=== PATIENT | male | born 1975 | race Caucasian/White ===

== ENCOUNTER 2016-08-12 22:52 | Emergency (ER) | payer OTHER, SELFPAY ==
[2016-08-12 23:28] LABS: AMPHETAMINES LEVEL URINE NEGATIVE (NEGATIVE); BENZODIAZEPINES URINE NEGATIVE (NEGATIVE); COCAINE METABOLITE URINE NEGATIVE (NEGATIVE); METHADONE URINE NEGATIVE (NEGATIVE); OPIATES URINE NEGATIVE (NEGATIVE); TRICYCLIC ANTIDEPRESS URINE NEGATIVE (NEGATIVE)
[2016-08-12 23:29] LABS: CONTROL LINE INT CTR LINE PRESENT
[2016-08-12 23:30] LABS: MEAN CORPUSCULAR HEMOGLOBIN 31.1 pg (27.0-33.0); MEAN CORPUSCULAR HGB CONC 33.8 g/dl (32.0-36.5); MEAN CORPUSCULAR VOLUME 92.2 fl (80.0-96.0); RED CELL DISTRIBUTION WIDTH 12.6 % (11.5-14.5); WHITE BLOOD COUNT 14.5 K/mm3 (4.0-10.0)
[2016-08-12 23:56] LABS: ALBUMIN 3.9 GM/DL (3.2-5.2); ALBUMIN/GLOBULIN RATIO 1.11 (1.00-1.93); ALKALINE PHOSPHATASE 108 U/L (45-117); ALT/SGPT 43 U/L (12-78); ANION GAP 11 MEQ/L (8-16); AST/SGOT 31 U/L (15-37); BILIRUBIN,DIRECT 0.1 MG/DL (0.0-0.2); BILIRUBIN,TOTAL 0.4 MG/DL (0.2-1.0); BLOOD UREA NITROGEN 12 MG/DL (7-18); CALCIUM LEVEL 8.2 MG/DL (8.5-10.1); CARBON DIOXIDE LEVEL 25 MEQ/L (21-32); CHLORIDE LEVEL 107 MEQ/L (98-107); GLOMERULAR FILTRATION RATE > 60.0 (>60); GLUCOSE, FASTING 83 MG/DL (70-105); POTASSIUM SERUM 3.5 MEQ/L (3.5-5.1); SODIUM LEVEL 143 MEQ/L (136-145); TOTAL PROTEIN 7.4 GM/DL (6.4-8.2)
[2016-08-13] MEDS ORDERED: ACETAMINOPHEN 325 MG TAB As Ordered ONE (02:54)
--- NOTE | 2016-08-13 05:02 | EDDOCDS ---
Nurse's Notes [facility] Name: Kishan Diehl Age: 41 yrs Sex: Male : 1975 Arrival Date: 08/12/2016 Time: 22:52 Bed OBSERVATION Private MD: Diagnosis: Alcohol abuse with intoxication;Acute stress reaction Presentation: 08/12 23:01 Presenting complaint: ETOH/SI. Mental Health Triage Level: Level 2: The patient ttb displays active suicidal ideations. Adult Sepsis Screening: The patient does not have new or worsening altered mentation. Patient's respiratory rate is less than 22. Systolic blood pressure is greater than 100. Patient has a qSOFA score of 0- Negative Sepsis Screen. Suicide/Homicide risk assessment- The patient admits to and/or has been reported to be having suicidal ideations. The patient reports that he/she has a recent or current history of substance abuse. Status: Patient is not a medical service technician or dependent. Transition of care: patient was not received from another setting of care. 23:01 Acuity: MARCELINO Level 3 ttb 23:01 Method Of Arrival: Police Car ttb Triage Assessment: 23:03 General: Appears in no apparent distress, well nourished, Behavior is appropriate for ttb age, cooperative, pleasant. Pain: Denies pain. HIV screening NA for this visit Offered previously. Neurological: Level of Consciousness is awake, alert, Oriented to person, place, time. Cardiovascular: Chest pain is denied. Respiratory: Airway is patent Respiratory effort is even, unlabored, Denies shortness of breath. Derm: Skin is normal. Historical: - Allergies: Compazine; - Home Meds: 1. Omeprazole Unknown Oral Unknown once daily (Last dose: 08/12/2016 07:00) - PMHx: GERD; - PSHx: Hernia repair; - Social history: Smoking status: Patient uses tobacco products, heavy tobacco smoker. Patient uses alcohol occasionally. street drugs, marijuana, No barriers to communication noted, The patient speaks fluent Latvian, Speaks appropriately for age. - Family history: Not pertinent. - : The pt / caregiver states he / she is not on anticoagulants. Home medication list is obtained from the patient. - Exposure Risk Screening:: None identified. Screenin:11 Screening information is obtained from the patient. Assistance ADL's: requires no slm assistance with activities of daily living. Abuse/DV Screen: The patient / caregiver reports he/she is: not in a situation that causes fear, pain or injury. Nutritional screening: No deficits noted. Advance Directives: Currently, there is no health care proxy. There is no active DNR order. There is no living will. There is no Power of Plant Wrapper. Advance directive information has not previously been placed in an [facility] medical record. Further advance directive information is declined. 08/13 04:52 Fall risk: No risks identified. home support is adequate. slm Assessment: 08/12 23:04 General: Appears in no apparent distress, comfortable, Behavior is appropriate for age, slm cooperative, pleasant. General: pt resting on stretcher admits to + ETOH use tonight security observing safety maintained . Pain: Denies pain. Neurological: Level of Consciousness is awake, alert, obeys commands. Respiratory: Airway is patent Respiratory effort is even, unlabored. Derm: Skin is pink, warm & dry. 23:59 General: Appears in no apparent distress, comfortable, to be sleeping. Behavior is slm quiet. General: security observing . Respiratory: Airway is patent Respiratory effort is even, unlabored, Respiratory pattern is regular. 08/13 00:37 General: Appears in no apparent distress, comfortable, to be sleeping. Behavior is slm quiet. General: security observing. Respiratory: No deficits noted. 01:37 General: Appears in no apparent distress, comfortable, to be sleeping. Behavior is slm quiet. General: resting on stretcher security observing . Respiratory: Airway is patent Respiratory effort is even, unlabored. 02:18 General: Appears in no apparent distress, comfortable, to be sleeping. Behavior is slm cooperative, quiet. General: security observing . Respiratory: Airway is patent Respiratory effort is even, unlabored. Derm: Skin is pink, warm & dry. 02:59 General: Appears in no apparent distress, comfortable, Behavior is appropriate for age, slm cooperative. General: pt resting on stretcher c/o headache meds given at this time will cont to monitor security observing . Pain:. Neurological: Level of Consciousness is awake, alert, obeys commands. Respiratory: Airway is patent Respiratory effort is even, unlabored. 03:31 General: Pt resting at rounds, no apparent distress, security observing, will continue sls1 to assess.. 03:54 General: Appears in no apparent distress, comfortable, Behavior is cooperative. slm General: pt resting on stretcher security observing . Respiratory: Airway is patent Respiratory effort is even, unlabored. 05:00 General: Appears in no apparent distress, comfortable, Behavior is appropriate for age, slm cooperative. General: pt d/c home via cab seen by and PSA no concerns . Pain: Denies pain. Neurological: Level of Consciousness is awake, alert, obeys commands, Oriented to person, place, time, Gait is steady, Speech is normal. Respiratory: No deficits noted. Derm: Skin is. Mental Health Eval: 08/12 23:04 Referral Information: Evaluation referral is generated by a police agency: [employer] on cl 9.41.. The patient was referred for evaluation because Pt reportedly spoke to ex amilcar and expressed SI, made statement that he had "hit rock bottom" per Police, has been drinking as well tonight, pt has long hx of ETOH dependence. Pt calm/cooperative on arrival.. 08/13 04:49 Status: The patient is not a medical service technician or dependent. [facility] Behavioral Health: The patient is not an established patient of [facility] Behavioral Health. Subjective: The patients chief complaint is Pt is awake, A&Ox3, clinically sober, calm/cooperative, states "I drank too much and said some stupid shit on Facebook, I'm embarrassed"..Pt admits to ETOH issues, has long hx, adamantly denies SI/HI, states "I have kids, I would never do that". Pt denies prior attempts at self harm, states he was getting ready to lay down fo the night when the Police arrived, states he has been doing well with new job and spending time with new female acquaintance, "just had a bad day yesterday and drank too much". Pt can easily CFS, denies SI/HI/AH/VH/drug use admits to frequent ETOH but declines any referral info. . Delusions are denied. Patient's mood is dysphoric, Hallucinations are denied. Subjective: Pt admits to feeling upset over recent separation from spouse after 10 years of marriage but states "I'm doing OK with it, just had a bad day yesterday..I have kids and would never do something that stupid". Mental Health history: alcohol abuse, depression, Mental Health Admissions: [facility] Current Outpatient Mental Health Services: None. Current living environment is The patient currently lives with a roommate, . The patient is . Patient presents to Emergency Department with the following symptoms within the past 2 weeks: alcohol abuse, marital problem. Substance abuse: Pt denies. Mental status exam: Patients appearance is disheveled Patient's behavior is cooperative, Speech is normal. Affect is appropriate. Mood is dysphoric. Hallucinations are denied. Appetite is normal. Memory is good. Energy level is normal. Content of thought is normal. Thought process is intact. Cognitive level is oriented to person, place, time and situation Patient's insight is fair. Judgement is fair. Rapport with interviewer is good. Suicidal Ideation is denied. Homicidal ideation is denied. Disposition: Medically cleared for disposition by Joey Guillen DO Psychiatric Consult is deferred per ED physician, Dr Guillen. [facility] Admission Criteria: Not Applicable. [place] because the patient does not display any suicidal or homicidal ideations and does not pose a risk to self or others. DSM-V Differential Diagnosis: Alcohol Intoxication moderate. Insurance Pre-Certification: Not Required. Family Notification: Notification to family of patient status is not currently needed or appropriate. Vital Signs: 08/12 22:54 BP 144 / 95; Pulse 110; Resp 18; Temp 96.5(T); Pulse Ox 98% on R/A; Pain 0/10; slm 08/13 02:51 Pain 2/10; kb5 04:50 BP 114 / 63; Pulse 98; Resp 18; Temp 98.4(T); Pulse Ox 97% on R/A; [facility] Vitals: 08/12 22:54 Log In time N/A- police car arrival. [facility] ED Course: 22:53 Patient visited by Mika Renee. zo 22:53 Patient moved to [facility] zo 22:54 Analia Hampton LPN is Primary Nurse. [facility] 22:54 Patient moved to [address] 23:00 Psych Safety Check: Location: Psych Room. Visual Assessment: Cooperative. kb5 23:02 Triage Initiated ttb 23:09 [facility] Legal paperwork was scanned into [employer] and attached to record. cl 23:10 Joey Guillen DO is Attending Physician. cs11 23:10 Patient visited by Joey Guillen DO. cs11 23:11 No IV's were initiated during this patient's visit. No procedures done that require slm assistance. Labs drawn. (by ED staff). Sent per order to lab. Urine collected. Urine specimen sent to lab. 23:12 Acetaminophen Level Sent. slm 23:12 Basic Metabolic Profile Sent. slm 23:12 Complete Blood Count Sent. slm 23:12 Drug Eval Toxicology ED Only Sent. slm 23:12 Ethyl Alcohol (ethanol) Sent. slm 23:12 Liver Profile Sent. slm 23:12 Salicylate Level Sent. slm 23:12 Thyroid Stimulating Hormone Sent. slm 23:15 Patient visited by Jordy Lew PCA. kb5 23:15 Pt greeted and oriented to ED. Patient advised of names of staff involved in care, kb5 location of call zaragoza, wait times and NPO status. Patient has correct armband on for positive identification. Placed in psych safe attire. Bed in low position. Call light in reach. Side rails up X 1. Security observing. Property removed, inventory done, secured in belongings bag- Placed in Locker 3. Door closed. Noise minimized. Visitors limited. Lights dimmed. Warm blanket given. Psych Safety Check: Location: Psych Room. Visual Assessment: Cooperative. 23:30 Psych Safety Check: Location: Psych Room. Visual Assessment: Cooperative. kb5 23:33 Patient visited by Jordy Lew PCA. kb5 23:45 Psych Safety Check: Location: Psych Room. Visual Assessment: Cooperative. kb5 23:46 Patient visited by Jordy Lew PCA. kb5 [id number] 00:00 Psych Safety Check: Location: Psych Room. Visual Assessment: Cooperative. kb5 00:07 Patient visited by Jordy Lew PCA. kb5 00:15 Patient visited by Jordy Lew PCA. kb5 00:15 Psych Safety Check: Location: Psych Room. Visual Assessment: Cooperative. kb5 00:30 Patient visited by Jordy Lew PCA. kb5 00:30 Psych Safety Check: Location: Psych Room. Visual Assessment: Cooperative. kb5 00:37 Patient visited by Analia Hampton LPN. slm 00:45 Psych Safety Check: Location: Psych Room. Visual Assessment: Cooperative. kb5 00:46 Patient visited by Jordy Lew PCA. kb5 01:00 Patient visited by Jordy Lew PCA. kb5 01:00 Psych Safety Check: Location: Psych Room. Visual Assessment: Cooperative. kb5 01:15 Patient visited by Jordy Lew PCA. kb5 01:15 Psych Safety Check: Location: Psych Room. Visual Assessment: Cooperative. kb5 01:20 Patient moved to OBSERVATION cs11 01:30 Psych Safety Check: Location: Psych Room. Visual Assessment: Cooperative. kb5 01:45 Psych Safety Check: Location: Psych Room. Visual Assessment: Cooperative. kb5 01:48 Patient visited by Jordy Lew PCA. kb5 02:00 Psych Safety Check: Location: Psych Room. Visual Assessment: Cooperative. kb5 02:15 Psych Safety Check: Location: Psych Room. Visual Assessment: Cooperative. kb5 02:19 Patient visited by Analia Hampton LPN. slm 02:30 Psych Safety Check: Location: Psych Room. Visual Assessment: Cooperative. kb5 02:45 Psych Safety Check: Location: Psych Room. Visual Assessment: Cooperative. kb5 03:00 Patient visited by Jordy Lew PCA. kb5 03:00 Patient visited by Analia Hampton LPN. slm 03:00 Psych Safety Check: Location: Psych Room. Visual Assessment: Cooperative. kb5 03:15 Psych Safety Check: Location: Psych Room. Visual Assessment: Cooperative. kb5 03:30 [facility] was [place] into [employer] and attached to record. sl 03:30 Psych Safety Check: Location: Psych Room. Visual Assessment: Cooperative. kb5 03:33 Patient visited by Pepper Avalos RN. sls1 03:45 Patient visited by Jordy Lew PCA. kb5 03:45 Psych Safety Check: Location: Psych Room. Visual Assessment: Cooperative. kb5 04:00 Psych Safety Check: Location: Psych Room. Visual Assessment: Cooperative. kb5 04:11 Patient visited by Jordy Lew PCA. kb5 04:15 Psych Safety Check: Location: Psych Room. Visual Assessment: Cooperative. kb5 04:17 Patient visited by Jordy Lew PCA. kb5 04:30 Patient visited by Jordy Lew PCA. kb5 04:30 Psych Safety Check: Location: Psych Room. Visual Assessment: Cooperative. kb5 04:45 Patient visited by Jordy Lew PCA. kb5 04:45 Psych Safety Check: Location: Psych Room. Visual Assessment: Cooperative. kb5 04:50 Referral list, As provided by [facility] is Referral Physician. cs11 04:52 Patient visited by Analia Hampton LPN. sl 04:52 The patient / caregiver is instructed regarding the plan of care and ED course. [facility] 05:01 Patient visited by Analia Hampton LPN. [facility] Administered Medications: 02:59 Drug: Acetaminophen 650 mg [acetaminophen 325 mg tablet (2 tabs)] Route: PO; [facility] 03:54 Follow up: Response: Pain is decreased [facility] Attachments: 08/12 23:09 M[facility] Legal paperwork cl Order Results: Lab Order: Acetaminophen Level; SPEC'M 08/12/16 22:59 Test: ACETAMINOPHEN LEVEL; Value: < 2.0; Range: 10.0-30.0; Abnormal: Below low normal; Units: UG/ML; Status: F Lab Order: Basic Metabolic Profile; SPEC'M 08/12/16 22:59 Test: GLUCOSE, FASTING; Value: 83; Range: 70-105; Units: MG/DL; Status: F Test: BLOOD UREA NITROGEN; Value: 12; Range: 7-18; Units: MG/DL; Status: F Test: CREATININE FOR GFR; Value: 1.00; Range: 0.70-1.30; Units: MG/DL; Status: F Test: GLOMERULAR FILTRATION RATE; Value: > 60.0; Range: >60; Status: F Test: SODIUM LEVEL; Value: 143; Range: 136-145; Units: MEQ/L; Status: F Test: POTASSIUM SERUM; Value: 3.5; Range: 3.5-5.1; Units: MEQ/L; Status: F Test: CHLORIDE LEVEL; Value: 107; Range: 98-107; Units: MEQ/L; Status: F Test: CARBON DIOXIDE LEVEL; Value: 25; Range: 21-32; Units: MEQ/L; Status: F Test: ANION GAP; Value: 11; Range: 8-16; Units: MEQ/L; Status: F Test: CALCIUM LEVEL; Value: 8.2; Range: 8.5-10.1; Abnormal: Below low normal; Units: MG/DL; Status: F Test Note: ; Units are mL/min/1.73 m2 Chronic Kidney Disease Staging per NKF: Stage I & II GFR >=60 Normal to Mildly Decreased Stage III GFR 30-59 Moderately Decreased Stage IV GFR 15-29 Severely Decreased Stage V GFR <15 Very Little GFR Left ESRD GFR <15 on CORD SPLICER Lab Order: Complete Blood Count; SPEC'M 08/12/16 22:59 Test: WHITE BLOOD COUNT; Value: 14.5; Range: 4.0-10.0; Abnormal: Above high normal; Units: K/mm3; Status: F Test: RED BLOOD COUNT; Value: 4.80; Range: 4.30-6.10; Units: M/mm3; Status: F Test: HEMOGLOBIN; Value: 14.9; Range: 14.0-18.0; Units: g/dl; Status: F Test: HEMATOCRIT; Value: 44.2; Range: 42.0-52.0; Units: %; Status: F Test: MEAN CORPUSCULAR VOLUME; Value: 92.2; Range: 80.0-96.0; Units: fl; Status: F Test: MEAN CORPUSCULAR HEMOGLOBIN; Value: 31.1; Range: 27.0-33.0; Units: pg; Status: F Test: MEAN CORPUSCULAR HGB CONC; Value: 33.8; Range: 32.0-36.5; Units: g/dl; Status: F Test: RED CELL DISTRIBUTION WIDTH; Value: 12.6; Range: 11.5-14.5; Units: %; Status: F Test: PLATELET COUNT, AUTOMATED; Value: 356; Range: 150-450; Units: k/mm3; Status: F Lab Order: Drug Eval Toxicology ED Only; SPEC'M 08/12/16 22:59 Test: AMPHETAMINES LEVEL URINE; Value: NEGATIVE; Range: NEGATIVE; Status: F Test: BARBITURATES URINE; Value: NEGATIVE; Range: NEGATIVE; Status: F Test: BENZODIAZEPINES URINE; Value: NEGATIVE; Range: NEGATIVE; Status: F Test: CANNABINOIDS URINE; Value: POSITIVE; Range: NEGATIVE; Abnormal: Above high normal; Status: F Test: COCAINE METABOLITE URINE; Value: NEGATIVE; Range: NEGATIVE; Status: F Test: METHADONE URINE; Value: NEGATIVE; Range: NEGATIVE; Status: F Test: OPIATES URINE; Value: NEGATIVE; Range: NEGATIVE; Status: F Test: TRICYCLIC ANTIDEPRESS URINE; Value: NEGATIVE; Range: NEGATIVE; Status: F Test Note: ; FALSE POSITIVE RESULTS CAN BE CAUSED BY THE USE OF PANTOPRAZOLE (PROTONIX). Lab Order: Ethyl Alcohol (ethanol); SPEC'M 08/12/16 22:59 Test: ETHYL ALCOHOL (ETHANOL); Value: 0.220; Range: 0.000-0.010; Abnormal: Above high normal; Units: %; Status: F Lab Order: Liver Profile; SPEC'M 08/12/16 22:59 Test: AST/SGOT; Value: 31; Range: 15-37; Units: U/L; Status: F Test: ALT/SGPT; Value: 43; Range: 12-78; Units: U/L; Status: F Test: ALKALINE PHOSPHATASE; Value: 108; Range: 45-117; Units: U/L; Status: F Test: BILIRUBIN,TOTAL; Value: 0.4; Range: 0.2-1.0; Units: MG/DL; Status: F Test: BILIRUBIN,DIRECT; Value: 0.1; Range: 0.0-0.2; Units: MG/DL; Status: F Test: TOTAL PROTEIN; Value: 7.4; Range: 6.4-8.2; Units: GM/DL; Status: F Test: ALBUMIN; Value: 3.9; Range: 3.2-5.2; Units: GM/DL; Status: F Test: ALBUMIN/GLOBULIN RATIO; Value: 1.11; Range: 1.00-1.93; Status: F Lab Order: Salicylate Level; SPEC'M 08/12/16 22:59 Test: SALICYLATE LEVEL; Value: 2.6; Range: 5.0-30.0; Abnormal: Below low normal; Units: MG/DL; Status: F Lab Order: Thyroid Stimulating Hormone; SPEC'M 08/12/16 22:59 Test: THYROID STIMULATING HORMONE; Value: 1.210; Range: 0.358-3.740; Units: uIU/ML; Status: F Outcome: 04:50 Discharge ordered by Provider. cs11 04:51 Discharge Assessment: patient administered narcotics - no. No special radiology studies slm were completed. 05:01 The following High Risk Discharge criteria are identified: Yes, no concerns per md and slm psa . Discharged to home ambulatory. Condition: stable. Discharge instructions given to patient, Instructed on discharge instructions, follow up and referral plans. Demonstrated understanding of instructions, Pt was receptive of discharge instructions/ teaching. 05:02 Patient left the ED. slm Signatures: Wilman Chappell, PSA PSA cl Mika Renee Kristopher, SHOP LABORER SHOP LABORER kb5 Pepper Avalos, RN RN sls1 Joey Guillen, DO cs11 Allie Grier RN RN Analia Mota LPN LPN [facility] Michelle Dupree [facility] DONIS
--- NOTE | 2016-08-13 05:02 | EDDOCDS ---
Physician Documentation [facility] Name: Kishan Diehl Age: 41 yrs Sex: Male : 1975 Arrival Date: 08/12/2016 Time: 22:52 Bed OBSERVATION Private MD: Disposition: 08/13/16 04:50 Discharged to Home/Self Care. Impression: Alcohol abuse with intoxication, Acute stress reaction. - Condition is Stable. - Medication Reconciliation, Local Pharmacy Hours form. - Follow up: Referral list, As provided by PFS; When: Call to arrange an appointment; Reason: Recheck today's complaints. - Problem is an ongoing problem. - Symptoms have improved. - Notes: Best wishes with new job. Historical: - Allergies: Compazine; - Home Meds: 1. Omeprazole Unknown Oral Unknown once daily (Last dose: 08/12/2016 07:00) - PMHx: GERD; - PSHx: Hernia repair; - Social history: Smoking status: Patient uses tobacco products, heavy tobacco smoker. Patient uses alcohol occasionally. street drugs, marijuana, No barriers to communication noted, The patient speaks fluent Armenian, Speaks appropriately for age. - Family history: Not pertinent. - : The pt / caregiver states he / she is not on anticoagulants. Home medication list is obtained from the patient. - Exposure Risk Screening:: None identified. Vital Signs: 08/12 22:54 BP 144 / 95; Pulse 110; Resp 18; Temp 96.5(T); Pulse Ox 98% on R/A; Pain 0/10; slm 08/13 02:51 Pain 2/10; kb5 04:50 BP 114 / 63; Pulse 98; Resp 18; Temp 98.4(T); Pulse Ox 97% on R/A; slm MDM: 08/12 23:09 MHE Legal paperwork was scanned into [employer] and attached to record. cl 23:10 Consult PFS/PSA/[employer] ordered. cs11 23:10 Consult PFS/PSA/[employer]: Patient's case requires discussion with on-call cs11 Psychiatrist ordered. 23:10 PSA/PFS to call Nursing Clinical Exercise Physiologist, to enter patient data on [place] Safe [place] if patient cs11 involuntarily admitted or transferred for SI or HI ordered. 23:10 Confirm accurate psychiatric medication list and times of last dosage ordered. cs11 23:10 Detain Pt Until Medically/PFS Cleared ordered. cs11 23:12 Acetaminophen Level Ordered. EDMS 23:12 Basic Metabolic Profile Ordered. EDMS 23:12 Complete Blood Count Ordered. EDMS 23:12 Drug Eval Toxicology ED Only Ordered. EDMS 23:12 Ethyl Alcohol (ethanol) Ordered. EDMS 23:12 Liver Profile Ordered. EDMS 23:12 Salicylate Level Ordered. EDMS 23:12 Thyroid Stimulating Hormone Ordered. EDMS 08/13 01:18 Acetaminophen Level Reviewed. cs11 01:18 Basic Metabolic Profile Reviewed. cs11 01:18 Complete Blood Count Reviewed. cs11 01:18 Drug Eval Toxicology ED Only Reviewed. cs11 01:18 Ethyl Alcohol (ethanol) Reviewed. cs11 01:18 Salicylate Level Reviewed. cs11 01:18 Liver Profile Reviewed. cs11 01:18 Thyroid Stimulating Hormone Reviewed. cs11 02:52 Acetaminophen Tablet 650 mg PO once ordered. cs11 03:22 Financial registration complete. [facility] 03:30 [facility] Payment Agreement was scanned into [employer] and attached to record. [facility] 05:01 Consult PFS/PSA/State [employer] complete. sl Administered Medications: 02:59 Drug: Acetaminophen 650 mg [acetaminophen 325 mg tablet (2 tabs)] Route: PO; [facility] 03:54 Follow up: Response: Pain is decreased sl Signatures: Dispatcher [employer] EDMS Wilman Chappell, PSA PSA Joey Frye, DO DO cs11 Allie Grier, RN RN Analia Mota,SCORER SINGLE SCORER SINGLE Michelle Sheldon [facility] The chart was reviewed and I authenticate all verbal orders and agree with the evaluation and treatment provided.Attachments: 08/13 03:30 [facility] Payment Agreement [facility] MTDD
--- NOTE | 2016-08-15 06:02 | EDDOCDS ---
Physician Documentation [facility] Name: Kishan Diehl Age: 41 yrs Sex: Male : 1975 Arrival Date: 08/12/2016 Time: 22:52 Bed OBSERVATION Private MD: Disposition: 08/13/16 04:50 Discharged to Home/Self Care. Impression: Alcohol abuse with intoxication, Acute stress reaction. - Condition is Stable. - Medication Reconciliation, Local Pharmacy Hours form. - Follow up: Referral list, As provided by PFS; When: Call to arrange an appointment; Reason: Recheck today's complaints. - Problem is an ongoing problem. - Symptoms have improved. - Notes: Best wishes with new job. Historical: - Allergies: Compazine; - Home Meds: 1. Omeprazole Unknown Oral Unknown once daily (Last dose: 08/12/2016 07:00) - PMHx: GERD; - PSHx: Hernia repair; - Social history: Smoking status: Patient uses tobacco products, heavy tobacco smoker. Patient uses alcohol occasionally. street drugs, marijuana, No barriers to communication noted, The patient speaks fluent Maori, Speaks appropriately for age. - Family history: Not pertinent. - : The pt / caregiver states he / she is not on anticoagulants. Home medication list is obtained from the patient. - Exposure Risk Screening:: None identified. Vital Signs: 08/12 22:54 BP 144 / 95; Pulse 110; Resp 18; Temp 96.5(T); Pulse Ox 98% on R/A; Pain 0/10; slm 08/13 02:51 Pain 2/10; kb5 04:50 BP 114 / 63; Pulse 98; Resp 18; Temp 98.4(T); Pulse Ox 97% on R/A; slm MDM: 08/12 23:09 MHE Legal paperwork was scanned into Starline and attached to record. cl 23:10 Consult PFS/PSA/Electro Mechanical Technologist ordered. cs11 23:10 Consult PFS/PSA/Electro Mechanical Technologist: Patient's case requires discussion with on-call cs11 Psychiatrist ordered. 23:10 PSA/PFS to call Nursing Banquet Manager, to enter patient data on [place] Safe Act if patient cs11 involuntarily admitted or transferred for SI or HI ordered. 23:10 Confirm accurate psychiatric medication list and times of last dosage ordered. cs11 23:10 Detain Pt Until Medically/PFS Cleared ordered. cs11 23:12 Acetaminophen Level Ordered. EDMS 23:12 Basic Metabolic Profile Ordered. EDMS 23:12 Complete Blood Count Ordered. EDMS 23:12 Drug Eval Toxicology ED Only Ordered. EDMS 23:12 Ethyl Alcohol (ethanol) Ordered. EDMS 23:12 Liver Profile Ordered. EDMS 23:12 Salicylate Level Ordered. EDMS 23:12 Thyroid Stimulating Hormone Ordered. EDMS 08/13 01:18 Acetaminophen Level Reviewed. cs11 01:18 Basic Metabolic Profile Reviewed. cs11 01:18 Complete Blood Count Reviewed. cs11 01:18 Drug Eval Toxicology ED Only Reviewed. cs11 01:18 Ethyl Alcohol (ethanol) Reviewed. cs11 01:18 Salicylate Level Reviewed. cs11 01:18 Liver Profile Reviewed. cs11 01:18 Thyroid Stimulating Hormone Reviewed. cs11 02:52 Acetaminophen Tablet 650 mg PO once ordered. cs11 03:22 Financial registration complete. [facility] 03:30 [facility] Payment Agreement was scanned into Starline and attached to record. [facility] 05:01 Consult PFS/PSA/Electro Mechanical Technologist complete. [facility] 07:01 T-Sheet-- Draft Copy was scanned into Starline and attached to record. gb Administered Medications: 02:59 Drug: Acetaminophen 650 mg [acetaminophen 325 mg tablet (2 tabs)] Route: PO; [facility] 03:54 Follow up: Response: Pain is decreased [facility] Signatures: Dispatcher [employer] EDMS Wilman Chappell, PSA PSA cl Shantelle Harrington, Reg Reg gb Joey Guillen, DO cs11 Allie Grier RN RN Analia Mota LPN LPN [facility] Michelle Dupree [facility] The chart was reviewed and I authenticate all verbal orders and agree with the evaluation and treatment provided.Attachments: 08/13 03:30 [facility] Payment Agreement [facility] 07:01 T-Sheet-- Draft Copy gb Chart Complete MTDD
--- NOTE | 2016-08-15 06:03 | EDDOCDS ---
Nurse's Notes [facility] Name: Kishan Diehl Age: 41 yrs Sex: Male : 1975 Arrival Date: 08/12/2016 Time: 22:52 Bed OBSERVATION Private MD: Diagnosis: Alcohol abuse with intoxication;Acute stress reaction Presentation: 08/12 23:01 Presenting complaint: ETOH/SI. Mental Health Triage Level: Level 2: The patient ttb displays active suicidal ideations. Adult Sepsis Screening: The patient does not have new or worsening altered mentation. Patient's respiratory rate is less than 22. Systolic blood pressure is greater than 100. Patient has a qSOFA score of 0- Negative Sepsis Screen. Suicide/Homicide risk assessment- The patient admits to and/or has been reported to be having suicidal ideations. The patient reports that he/she has a recent or current history of substance abuse. Status: Patient is not a field service rep or dependent. Transition of care: patient was not received from another setting of care. 23:01 Acuity: MARCELINO Level 3 ttb 23:01 Method Of Arrival: Police Car ttb Triage Assessment: 23:03 General: Appears in no apparent distress, well nourished, Behavior is appropriate for ttb age, cooperative, pleasant. Pain: Denies pain. HIV screening NA for this visit Offered previously. Neurological: Level of Consciousness is awake, alert, Oriented to person, place, time. Cardiovascular: Chest pain is denied. Respiratory: Airway is patent Respiratory effort is even, unlabored, Denies shortness of breath. Derm: Skin is normal. Historical: - Allergies: Compazine; - Home Meds: 1. Omeprazole Unknown Oral Unknown once daily (Last dose: 08/12/2016 07:00) - PMHx: GERD; - PSHx: Hernia repair; - Social history: Smoking status: Patient uses tobacco products, heavy tobacco smoker. Patient uses alcohol occasionally. street drugs, marijuana, No barriers to communication noted, The patient speaks fluent Greenlandic, Speaks appropriately for age. - Family history: Not pertinent. - : The pt / caregiver states he / she is not on anticoagulants. Home medication list is obtained from the patient. - Exposure Risk Screening:: None identified. Screenin:11 Screening information is obtained from the patient. Assistance ADL's: requires no slm assistance with activities of daily living. Abuse/DV Screen: The patient / caregiver reports he/she is: not in a situation that causes fear, pain or injury. Nutritional screening: No deficits noted. Advance Directives: Currently, there is no health care proxy. There is no active DNR order. There is no living will. There is no Power of Bias Machine Operator. Advance directive information has not previously been placed in an [facility] medical record. Further advance directive information is declined. 08/13 04:52 Fall risk: No risks identified. home support is adequate. slm Assessment: 08/12 23:04 General: Appears in no apparent distress, comfortable, Behavior is appropriate for age, slm cooperative, pleasant. General: pt resting on stretcher admits to + ETOH use tonight security observing safety maintained . Pain: Denies pain. Neurological: Level of Consciousness is awake, alert, obeys commands. Respiratory: Airway is patent Respiratory effort is even, unlabored. Derm: Skin is pink, warm & dry. 23:59 General: Appears in no apparent distress, comfortable, to be sleeping. Behavior is slm quiet. General: security observing . Respiratory: Airway is patent Respiratory effort is even, unlabored, Respiratory pattern is regular. 08/13 00:37 General: Appears in no apparent distress, comfortable, to be sleeping. Behavior is slm quiet. General: security observing. Respiratory: No deficits noted. 01:37 General: Appears in no apparent distress, comfortable, to be sleeping. Behavior is slm quiet. General: resting on stretcher security observing . Respiratory: Airway is patent Respiratory effort is even, unlabored. 02:18 General: Appears in no apparent distress, comfortable, to be sleeping. Behavior is slm cooperative, quiet. General: security observing . Respiratory: Airway is patent Respiratory effort is even, unlabored. Derm: Skin is pink, warm & dry. 02:59 General: Appears in no apparent distress, comfortable, Behavior is appropriate for age, slm cooperative. General: pt resting on stretcher c/o headache meds given at this time will cont to monitor security observing . Pain:. Neurological: Level of Consciousness is awake, alert, obeys commands. Respiratory: Airway is patent Respiratory effort is even, unlabored. 03:31 General: Pt resting at rounds, no apparent distress, security observing, will continue sls1 to assess.. 03:54 General: Appears in no apparent distress, comfortable, Behavior is cooperative. slm General: pt resting on stretcher security observing . Respiratory: Airway is patent Respiratory effort is even, unlabored. 05:00 General: Appears in no apparent distress, comfortable, Behavior is appropriate for age, slm cooperative. General: pt d/c home via cab seen by and PSA no concerns . Pain: Denies pain. Neurological: Level of Consciousness is awake, alert, obeys commands, Oriented to person, place, time, Gait is steady, Speech is normal. Respiratory: No deficits noted. Derm: Skin is. Mental Health Eval: 08/12 23:04 Referral Information: Evaluation referral is generated by a police agency: [employer] on cl 9.41.. The patient was referred for evaluation because Pt reportedly spoke to ex amilcar and expressed SI, made statement that he had "hit rock bottom" per Police, has been drinking as well tonight, pt has long hx of ETOH dependence. Pt calm/cooperative on arrival.. 08/13 04:49 Status: The patient is not a field service rep or dependent. [facility]: The patient is not an established patient of [facility]. Subjective: The patients chief complaint is Pt is awake, A&Ox3, clinically sober, calm/cooperative, states "I drank too much and said some stupid shit on Facebook, I'm embarrassed"..Pt admits to ETOH issues, has long hx, adamantly denies SI/HI, states "I have kids, I would never do that". Pt denies prior attempts at self harm, states he was getting ready to lay down fo the night when the Police arrived, states he has been doing well with new job and spending time with new female acquaintance, "just had a bad day yesterday and drank too much". Pt can easily CFS, denies SI/HI/AH/VH/drug use admits to frequent ETOH but declines any referral info. . Delusions are denied. Patient's mood is dysphoric, Hallucinations are denied. Subjective: Pt admits to feeling upset over recent separation from spouse after 10 years of marriage but states "I'm doing OK with it, just had a bad day yesterday..I have kids and would never do something that stupid". Mental Health history: alcohol abuse, depression, Mental Health Admissions: [facility] Current Outpatient Mental Health Services: None. Current living environment is The patient currently lives with a roommate, . The patient is . Patient presents to Emergency Department with the following symptoms within the past 2 weeks: alcohol abuse, marital problem. Substance abuse: Pt denies. Mental status exam: Patients appearance is disheveled Patient's behavior is cooperative, Speech is normal. Affect is appropriate. Mood is dysphoric. Hallucinations are denied. Appetite is normal. Memory is good. Energy level is normal. Content of thought is normal. Thought process is intact. Cognitive level is oriented to person, place, time and situation Patient's insight is fair. Judgement is fair. Rapport with interviewer is good. Suicidal Ideation is denied. Homicidal ideation is denied. Disposition: Medically cleared for disposition by Joey Guillen DO Psychiatric Consult is deferred per ED physician, Dr Guillen. [facility] Admission Criteria: Not Applicable. [place] Safe [place] because the patient does not display any suicidal or homicidal ideations and does not pose a risk to self or others. DSM-V Differential Diagnosis: Alcohol Intoxication moderate. Insurance Pre-Certification: Not Required. Family Notification: Notification to family of patient status is not currently needed or appropriate. Vital Signs: 08/12 22:54 BP 144 / 95; Pulse 110; Resp 18; Temp 96.5(T); Pulse Ox 98% on R/A; Pain 0/10; slm 08/13 02:51 Pain 2/10; kb5 04:50 BP 114 / 63; Pulse 98; Resp 18; Temp 98.4(T); Pulse Ox 97% on R/A; [facility] Vitals: 08/12 22:54 Log In time N/A- police car arrival. [facility] ED Course: 22:53 Patient visited by Mika Renee. zo 22:53 Patient moved to [facility] zo 22:54 Analia Hampton LPN is Primary Nurse. [facility] 22:54 Patient moved to [address] 23:00 Psych Safety Check: Location: Psych Room. Visual Assessment: Cooperative. kb5 23:02 Triage Initiated ttb 23:09 MHE Legal paperwork was scanned into Xooker and attached to record. cl 23:10 Joey Guillen DO is Attending Physician. cs11 23:10 Patient visited by Joey Guillen DO. cs11 23:11 No IV's were initiated during this patient's visit. No procedures done that require slm assistance. Labs drawn. (by ED staff). Sent per order to lab. Urine collected. Urine specimen sent to lab. 23:12 Acetaminophen Level Sent. slm 23:12 Basic Metabolic Profile Sent. slm 23:12 Complete Blood Count Sent. slm 23:12 Drug Eval Toxicology ED Only Sent. slm 23:12 Ethyl Alcohol (ethanol) Sent. slm 23:12 Liver Profile Sent. slm 23:12 Salicylate Level Sent. slm 23:12 Thyroid Stimulating Hormone Sent. slm 23:15 Patient visited by Jordy Lew PCA. kb5 23:15 Pt greeted and oriented to ED. Patient advised of names of staff involved in care, kb5 location of call zaragoza, wait times and NPO status. Patient has correct armband on for positive identification. Placed in psych safe attire. Bed in low position. Call light in reach. Side rails up X 1. Security observing. Property removed, inventory done, secured in belongings bag- Placed in Locker 3. Door closed. Noise minimized. Visitors limited. Lights dimmed. Warm blanket given. Psych Safety Check: Location: Psych Room. Visual Assessment: Cooperative. 23:30 Psych Safety Check: Location: Psych Room. Visual Assessment: Cooperative. kb5 23:33 Patient visited by Jordy Lew PCA. kb5 23:45 Psych Safety Check: Location: Psych Room. Visual Assessment: Cooperative. kb5 23:46 Patient visited by Jordy Lew PCA. kb5 [id number] 00:00 Psych Safety Check: Location: Psych Room. Visual Assessment: Cooperative. kb5 00:07 Patient visited by Jordy Lew PCA. kb5 00:15 Patient visited by Jordy Lew PCA. kb5 00:15 Psych Safety Check: Location: Psych Room. Visual Assessment: Cooperative. kb5 00:30 Patient visited by Jordy Lew PCA. kb5 00:30 Psych Safety Check: Location: Psych Room. Visual Assessment: Cooperative. kb5 00:37 Patient visited by Analia Hampton LPN. slm 00:45 Psych Safety Check: Location: Psych Room. Visual Assessment: Cooperative. kb5 00:46 Patient visited by Jordy Lew PCA. kb5 01:00 Patient visited by Jordy Lew PCA. kb5 01:00 Psych Safety Check: Location: Psych Room. Visual Assessment: Cooperative. kb5 01:15 Patient visited by Jordy Lew PCA. kb5 01:15 Psych Safety Check: Location: Psych Room. Visual Assessment: Cooperative. kb5 01:20 Patient moved to OBSERVATION cs11 01:30 Psych Safety Check: Location: Psych Room. Visual Assessment: Cooperative. kb5 01:45 Psych Safety Check: Location: Psych Room. Visual Assessment: Cooperative. kb5 01:48 Patient visited by Jordy Lew PCA. kb5 02:00 Psych Safety Check: Location: Psych Room. Visual Assessment: Cooperative. kb5 02:15 Psych Safety Check: Location: Psych Room. Visual Assessment: Cooperative. kb5 02:19 Patient visited by Analia Hampton LPN. slm 02:30 Psych Safety Check: Location: Psych Room. Visual Assessment: Cooperative. kb5 02:45 Psych Safety Check: Location: Psych Room. Visual Assessment: Cooperative. kb5 03:00 Patient visited by Jordy Lew PCA. kb5 03:00 Patient visited by Analia Hampton LPN. slm 03:00 Psych Safety Check: Location: Psych Room. Visual Assessment: Cooperative. kb5 03:15 Psych Safety Check: Location: Psych Room. Visual Assessment: Cooperative. kb5 03:30 [facility] Payment Agreement was scanned into Xooker and attached to record. sl 03:30 Psych Safety Check: Location: Psych Room. Visual Assessment: Cooperative. kb5 03:33 Patient visited by Pepper Avalos RN. sls1 03:45 Patient visited by Jordy Lew PCA. kb5 03:45 Psych Safety Check: Location: Psych Room. Visual Assessment: Cooperative. kb5 04:00 Psych Safety Check: Location: Psych Room. Visual Assessment: Cooperative. kb5 04:11 Patient visited by Jordy Lew PCA. kb5 04:15 Psych Safety Check: Location: Psych Room. Visual Assessment: Cooperative. kb5 04:17 Patient visited by Jordy Lew PCA. kb5 04:30 Patient visited by Jordy Lew PCA. kb5 04:30 Psych Safety Check: Location: Psych Room. Visual Assessment: Cooperative. kb5 04:45 Patient visited by Jordy Lew PCA. kb5 04:45 Psych Safety Check: Location: Psych Room. Visual Assessment: Cooperative. kb5 04:50 Referral list, As provided by [facility] is Referral Physician. cs11 04:52 Patient visited by Analia Hampton LPN. slm 04:52 The patient / caregiver is instructed regarding the plan of care and ED course. slm 05:00 Psych Safety Check: Location: Psych Room. Visual Assessment: Cooperative. kb5 05:01 Patient visited by Analia Hampton LPN. m 07:01 T-Sheet-- Draft Copy was scanned into Xooker and attached to record. gb Administered Medications: 02:59 Drug: Acetaminophen 650 mg [acetaminophen 325 mg tablet (2 tabs)] Route: PO; slm 03:54 Follow up: Response: Pain is decreased slm Attachments: 08/12 23:09 MHE Legal paperwork cl Order Results: Lab Order: Acetaminophen Level; SPEC'M 08/12/16 22:59 Test: ACETAMINOPHEN LEVEL; Value: < 2.0; Range: 10.0-30.0; Abnormal: Below low normal; Units: UG/ML; Status: F Lab Order: Basic Metabolic Profile; SPEC'M 08/12/16 22:59 Test: GLUCOSE, FASTING; Value: 83; Range: 70-105; Units: MG/DL; Status: F Test: BLOOD UREA NITROGEN; Value: 12; Range: 7-18; Units: MG/DL; Status: F Test: CREATININE FOR GFR; Value: 1.00; Range: 0.70-1.30; Units: MG/DL; Status: F Test: GLOMERULAR FILTRATION RATE; Value: > 60.0; Range: >60; Status: F Test: SODIUM LEVEL; Value: 143; Range: 136-145; Units: MEQ/L; Status: F Test: POTASSIUM SERUM; Value: 3.5; Range: 3.5-5.1; Units: MEQ/L; Status: F Test: CHLORIDE LEVEL; Value: 107; Range: 98-107; Units: MEQ/L; Status: F Test: CARBON DIOXIDE LEVEL; Value: 25; Range: 21-32; Units: MEQ/L; Status: F Test: ANION GAP; Value: 11; Range: 8-16; Units: MEQ/L; Status: F Test: CALCIUM LEVEL; Value: 8.2; Range: 8.5-10.1; Abnormal: Below low normal; Units: MG/DL; Status: F Test Note: ; Units are mL/min/1.73 m2 Chronic Kidney Disease Staging per NKF: Stage I & II GFR >=60 Normal to Mildly Decreased Stage III GFR 30-59 Moderately Decreased Stage IV GFR 15-29 Severely Decreased Stage V GFR <15 Very Little GFR Left ESRD GFR <15 on CALL CENTER TEAM LEADER Lab Order: Complete Blood Count; SPEC'M 08/12/16 22:59 Test: WHITE BLOOD COUNT; Value: 14.5; Range: 4.0-10.0; Abnormal: Above high normal; Units: K/mm3; Status: F Test: RED BLOOD COUNT; Value: 4.80; Range: 4.30-6.10; Units: M/mm3; Status: F Test: HEMOGLOBIN; Value: 14.9; Range: 14.0-18.0; Units: g/dl; Status: F Test: HEMATOCRIT; Value: 44.2; Range: 42.0-52.0; Units: %; Status: F Test: MEAN CORPUSCULAR VOLUME; Value: 92.2; Range: 80.0-96.0; Units: fl; Status: F Test: MEAN CORPUSCULAR HEMOGLOBIN; Value: 31.1; Range: 27.0-33.0; Units: pg; Status: F Test: MEAN CORPUSCULAR HGB CONC; Value: 33.8; Range: 32.0-36.5; Units: g/dl; Status: F Test: RED CELL DISTRIBUTION WIDTH; Value: 12.6; Range: 11.5-14.5; Units: %; Status: F Test: PLATELET COUNT, AUTOMATED; Value: 356; Range: 150-450; Units: k/mm3; Status: F Lab Order: Drug Eval Toxicology ED Only; SPEC'M 08/12/16 22:59 Test: AMPHETAMINES LEVEL URINE; Value: NEGATIVE; Range: NEGATIVE; Status: F Test: BARBITURATES URINE; Value: NEGATIVE; Range: NEGATIVE; Status: F Test: BENZODIAZEPINES URINE; Value: NEGATIVE; Range: NEGATIVE; Status: F Test: CANNABINOIDS URINE; Value: POSITIVE; Range: NEGATIVE; Abnormal: Above high normal; Status: F Test: COCAINE METABOLITE URINE; Value: NEGATIVE; Range: NEGATIVE; Status: F Test: METHADONE URINE; Value: NEGATIVE; Range: NEGATIVE; Status: F Test: OPIATES URINE; Value: NEGATIVE; Range: NEGATIVE; Status: F Test: TRICYCLIC ANTIDEPRESS URINE; Value: NEGATIVE; Range: NEGATIVE; Status: F Test Note: ; FALSE POSITIVE RESULTS CAN BE CAUSED BY THE USE OF PANTOPRAZOLE (PROTONIX). Lab Order: Ethyl Alcohol (ethanol); SPEC'M 08/12/16 22:59 Test: ETHYL ALCOHOL (ETHANOL); Value: 0.220; Range: 0.000-0.010; Abnormal: Above high normal; Units: %; Status: F Lab Order: Liver Profile; SPEC'M 08/12/16 22:59 Test: AST/SGOT; Value: 31; Range: 15-37; Units: U/L; Status: F Test: ALT/SGPT; Value: 43; Range: 12-78; Units: U/L; Status: F Test: ALKALINE PHOSPHATASE; Value: 108; Range: 45-117; Units: U/L; Status: F Test: BILIRUBIN,TOTAL; Value: 0.4; Range: 0.2-1.0; Units: MG/DL; Status: F Test: BILIRUBIN,DIRECT; Value: 0.1; Range: 0.0-0.2; Units: MG/DL; Status: F Test: TOTAL PROTEIN; Value: 7.4; Range: 6.4-8.2; Units: GM/DL; Status: F Test: ALBUMIN; Value: 3.9; Range: 3.2-5.2; Units: GM/DL; Status: F Test: ALBUMIN/GLOBULIN RATIO; Value: 1.11; Range: 1.00-1.93; Status: F Lab Order: Salicylate Level; SPEC'M 08/12/16 22:59 Test: SALICYLATE LEVEL; Value: 2.6; Range: 5.0-30.0; Abnormal: Below low normal; Units: MG/DL; Status: F Lab Order: Thyroid Stimulating Hormone; SPEC'M 08/12/16 22:59 Test: THYROID STIMULATING HORMONE; Value: 1.210; Range: 0.358-3.740; Units: uIU/ML; Status: F Outcome: 04:50 Discharge ordered by Provider. cs11 04:51 Discharge Assessment: patient administered narcotics - no. No special radiology studies slm were completed. 05:01 The following High Risk Discharge criteria are identified: Yes, no concerns per md and slm psa . Discharged to home ambulatory. Condition: stable. Discharge instructions given to patient, Instructed on discharge instructions, follow up and referral plans. Demonstrated understanding of instructions, Pt was receptive of discharge instructions/ teaching. 05:02 Patient left the ED. slm Signatures: Wilman Chappell, PSA PSA cl Shantelle Harrington, Reg Reg gb Mika Renee zo Jordy Lew, PROFESSOR OF ENGINEERING PROFESSOR OF ENGINEERING kb5 Pepper Avalos, RN RN sls1 Joey Guillen, DO cs11 Allie Grier, JORGE RN Analia Mota,ROSE MEDINAN Michelle [facility] Chart Complete LBD
--- NOTE | 2016-08-15 06:03 | EDDOCDS ---
Physician Documentation [facility] Name: Kishan Diehl Age: 41 yrs Sex: Male : 1975 Arrival Date: 08/12/2016 Time: 22:52 Bed OBSERVATION Private MD: Disposition: 08/13/16 04:50 Discharged to Home/Self Care. Impression: Alcohol abuse with intoxication, Acute stress reaction. - Condition is Stable. - Medication Reconciliation, Local Pharmacy Hours form. - Follow up: Referral list, As provided by PFS; When: Call to arrange an appointment; Reason: Recheck today's complaints. - Problem is an ongoing problem. - Symptoms have improved. - Notes: Best wishes with new job. Historical: - Allergies: Compazine; - Home Meds: 1. Omeprazole Unknown Oral Unknown once daily (Last dose: 08/12/2016 07:00) - PMHx: GERD; - PSHx: Hernia repair; - Social history: Smoking status: Patient uses tobacco products, heavy tobacco smoker. Patient uses alcohol occasionally. street drugs, marijuana, No barriers to communication noted, The patient speaks fluent Sami, Speaks appropriately for age. - Family history: Not pertinent. - : The pt / caregiver states he / she is not on anticoagulants. Home medication list is obtained from the patient. - Exposure Risk Screening:: None identified. Vital Signs: 08/12 22:54 BP 144 / 95; Pulse 110; Resp 18; Temp 96.5(T); Pulse Ox 98% on R/A; Pain 0/10; slm 08/13 02:51 Pain 2/10; kb5 04:50 BP 114 / 63; Pulse 98; Resp 18; Temp 98.4(T); Pulse Ox 97% on R/A; slm MDM: 08/12 23:09 M[facility] Legal paperwork was scanned into [employer] and attached to record. cl 23:10 Consult PFS/PSA/Auto Body Technician ordered. cs11 23:10 Consult PFS/PSA/Auto Body Technician: Patient's case requires discussion with on-call cs11 Psychiatrist ordered. 23:10 PSA/PFS to call Nursing Power Engineer, to enter patient data on [place] Safe Act if patient cs11 involuntarily admitted or transferred for SI or HI ordered. 23:10 Confirm accurate psychiatric medication list and times of last dosage ordered. cs11 23:10 Detain Pt Until Medically/PFS Cleared ordered. cs11 23:12 Acetaminophen Level Ordered. EDMS 23:12 Basic Metabolic Profile Ordered. EDMS 23:12 Complete Blood Count Ordered. EDMS 23:12 Drug Eval Toxicology ED Only Ordered. EDMS 23:12 Ethyl Alcohol (ethanol) Ordered. EDMS 23:12 Liver Profile Ordered. EDMS 23:12 Salicylate Level Ordered. EDMS 23:12 Thyroid Stimulating Hormone Ordered. EDMS 08/13 01:18 Acetaminophen Level Reviewed. cs11 01:18 Basic Metabolic Profile Reviewed. cs11 01:18 Complete Blood Count Reviewed. cs11 01:18 Drug Eval Toxicology ED Only Reviewed. cs11 01:18 Ethyl Alcohol (ethanol) Reviewed. cs11 01:18 Salicylate Level Reviewed. cs11 01:18 Liver Profile Reviewed. cs11 01:18 Thyroid Stimulating Hormone Reviewed. cs11 02:52 Acetaminophen Tablet 650 mg PO once ordered. cs11 03:22 Financial registration complete. [facility] 03:30 [facility] Payment Agreement was scanned into [employer] and attached to record. [facility] 05:01 Consult PFS/PSA/Auto Body Technician complete. [facility] 07:01 T-Sheet-- Draft Copy was scanned into [employer] and attached to record. gb Administered Medications: 02:59 Drug: Acetaminophen 650 mg [acetaminophen 325 mg tablet (2 tabs)] Route: PO; [facility] 03:54 Follow up: Response: Pain is decreased [facility] Signatures: Dispatcher [employer] EDMS Wilman Chappell, PSA PSA cl Shantelle Harrington, Reg Reg gb Joey Guillen, DO cs11 Allie Grier RN RN Analia Mota LPN LPN [facility] Michelle Dupree [facility] The chart was reviewed and I authenticate all verbal orders and agree with the evaluation and treatment provided.Attachments: 08/13 03:30 [facility] Payment Agreement [facility] 07:01 T-Sheet-- Draft Copy gb Chart Complete MTDD
== END 2016-08-13 05:02 | disposition home or self-care (01) ==
LOC: M ED 22:52
DX: F43.0 Acute stress reaction (principal); F10.129 Alcohol abuse with intoxication, unspecified; K21.9 Gastro-esophageal reflux disease without esophagitis; Z72.0 Tobacco use; Z79.899 Other long term (current) drug therapy; Z88.8 Allergy status to other drugs, medicaments and biological substances
CPT/HCPCS: 36415; 80048; 80076; 80306; 84443; 85027; 99284; G0480

== ENCOUNTER 2016-11-04 15:32 | Emergency (ER) | payer MEDICAID, SELFPAY ==
[~2016-11-04] VITALS: Ht 175.3 cm; Wt 71.7 kg
[2016-11-04] MEDS ORDERED: FLUORESCEIN OPHTH 1 MG STRIP OD ONE (17:00)
[2016-11-04] MEDS ORDERED: NORCO, ANEXSIA 5/325MG TABLET (HYDROcodone/ACETAMINOPHEN) PO ONE (17:00)
--- NOTE | 2016-11-04 17:36 | REP ---
Clinical: Trauma . Comparison: None . Findings: Extensive trauma involving the right facial and periorbital region with fluid in the right maxillary sinus. The ventricles, sulci, and cisterns are normal in position and appearance. Colunga-white differentiation is maintained. No acute intracranial hemorrhage, mass/mass effect, pathology or trauma/injury. No evidence for acute infarction. No extra-axial fluid collection. Calvarium is intact. Impression: Extensive trauma involving the visualized right facial and periorbital region. No evidence for acute intracranial pathology or trauma/injury. Signed by Casey Sebastian MD 11/04/2016 05:28 P
--- NOTE | 2016-11-04 18:02 | REP ---
Clinical: Trauma. Technique: Axial noncontrast images from the the mid skull through the mandible with coronal and sagittal re-formations. Findings: Right facial and periorbital traumatic swelling and infiltration is appreciated with traumatic proptosis and periorbital/intraorbital emphysema. The left globe and intraconal contents appear intact. There is evidence for multiple comminuted bilateral nasal bone fractures as well as right orbital floor fractures and right medial and lateral maxillary wall fractures. There is a moderate amount of fluid within the right ethmoid and maxillary sinuses. The zygomatic arches are intact and symmetric. The mandible and temporomandibular joints are intact and symmetric. Impression: Comminuted fractures involving the bilateral nasal bones, right orbital floor and right medial and lateral maxillary ramirez. Surrounding post traumatic infiltration and soft tissue swelling as well as moderate amount of fluid in the right ethmoid and maxillary sinuses. Signed by Casey Sebastian MD 11/04/2016 05:53 P
--- NOTE | 2016-11-04 18:04 | REP ---
Clinical: Trauma. Technique: Axial images from the skull base to the thoracic inlet with coronal and sagittal re-formations. Findings: Alignment and lordosis maintained. There is no evidence for acute fracture / compression injury or subluxation. Moderate to advanced chronic degenerative changes involving the C6 vertebral body and C6-7 disc space as well as mild multilevel degenerative changes remain stable compared to MRI dated 11/28/2015. Spinal canal is patent. Posterior elements and spinous processes are intact. Paravertebral soft tissues are normal. Impression: 1. Multilevel degenerative changes centered at C6 are similar to prior MRI dated 11/28/2015. 2. There is no evidence for acute cervical spine trauma/injury. Signed by Casey Sebastian MD 11/04/2016 05:55 P
[2016-11-04] MEDS ORDERED: TETRACAINE 0.5% OPHTH SOLN 4ML OD ONE (18:45)
[2016-11-04] MEDS ORDERED: AUGMENTIN 875 MG TAB PO ONE (19:45)
[2016-11-04] MEDS ORDERED: NORCOTAB PO (19:59)
[2016-11-04] MEDS ORDERED: AUGM875T27 PO (19:59)
[2016-11-04 20:12] VITALS: BP 157/99
== END 2016-11-04 20:14 | disposition home or self-care (01) ==
LOC: M ED 16:13
DX: S02.2XXA Fracture of nasal bones, initial encounter for closed fracture (principal); S02.31XA Fracture of orbital floor, right side, initial encounter for closed fracture; S02.401A Maxillary fracture, unspecified side, initial encounter for closed fracture; S02.91XA Unspecified fracture of skull, initial encounter for closed fracture; W50.0XXA Accidental hit or strike by another person, initial encounter; Y92.410 Unspecified street and highway as the place of occurrence of the external cause; Y93.89 Activity, other specified; Y99.8 Other external cause status; M50.323 Other cervical disc degeneration at C6-C7 level; Z88.8 Allergy status to other drugs, medicaments and biological substances